=== PATIENT | female | born 1955 | race Caucasian/White ===

== ENCOUNTER 2022-02-15 08:04 | Inpatient (IN) | payer OTHER ==
[~2022-02-15] VITALS: Ht 157.5 cm; Wt 40.0 kg
--- NOTE | 2022-02-15 08:45 | NUR ---
PT'S DAUGHTER REPORTS PT NAUSEA AND VOMITING YESTERDAY RUNNY NOSE WELL. PT'S CLOTHES ALL WET APPARENTLY SWEATING.
--- NOTE | 2022-02-15 09:30 | NUR ---
PT DAUGHTER AT BEDSIDE
[2022-02-15 09:55] LABS: BASOPHILS % (AUTO) 0.1 % (0-1); EOSINOPHILS % (AUTO) 0.1 % (0-6); HEMATOCRIT 40.6 % (35.0-45.0); HEMOGLOBIN 13.9 g/dl (12.0-16.0); LYMPHOCYTES # (AUTO) 1.4 X10'3 (1.1-4.8); LYMPHOCYTES % (AUTO) 8.1 % (21-51); MEAN CORPUSCULAR HEMOGLOBIN 30.5 PG (27.0-31.0); MEAN CORPUSCULAR HGB CONC 34.1 g/dL (33.0-36.5); MEAN CORPUSCULAR VOLUME 89.4 FL (78-98); MEAN PLATELET VOLUME 6.8 FL (7.4-10.4); MONOCYTES # (AUTO) 0.9 X10'3 (0-0.9); MONOCYTES % (AUTO) 5.2 % (2-12); NEUTROPHILS # (AUTO) 15.2 X10'3 (1.8-7.7); NEUTROPHILS % (AUTO) 86.5 % (42-75); PLATELET COUNT 335 X10'3 (140-440); RED BLOOD COUNT 4.55 X10'6 (4.20-5.60); RED CELL DISTRIBUTION WIDTH 12.5 % (11.5-14.5); WHITE BLOOD COUNT 17.6 X10'3 (4.5-11.0)
[2022-02-15] MEDS ORDERED: PROP40TA72 PO (09:58)
[2022-02-15] MEDS ORDERED: CBD GUMMY PO (09:59)
[2022-02-15] MEDS ORDERED: [UNRECOGNIZED DRUG - OTHER] PO (09:59)
[2022-02-15 10:12] LABS: ALANINE AMINOTRANSFERASE 30 U/L (12-78); ALBUMIN/GLOBULIN RATIO 1.2 (1.1-1.5); ALKALINE PHOSPHATASE 94 IU/L (46-116); ANION GAP 14 (8-16); ASPARTATE AMINO TRANSFERASE 57 U/L (10-37); BILIRUBIN,TOTAL 1.5 MG/DL (0.1-1.0); BLOOD UREA NITROGEN 10 MG/DL (7-18); BUN/CREATININE RATIO 15.9 (6.6-38.0); CHLORIDE 77 MMOL/L (99-107); CREATININE 0.63 MG/DL (0.40-0.90); ETHANOL < 0.010 GM/DL (0.0-0.010); GLUCOSE 122 MG/DL (70-104); POTASSIUM 3.9 MMOL/L (3.5-5.1); TOTAL CARBON DIOXIDE 21.4 MMOL/L (24-32); TOTAL PROTEIN 7.3 G/DL (6.4-8.2); eGFR > 90 ML/MIN
[2022-02-15 10:15] LABS: SODIUM 112 MMOL/L (135-145)
[2022-02-15 10:29] LABS: UA COLLECTION TYPE STRAIGHT CATH
[2022-02-15 10:30] LABS: CLARITY,URINE CLEAR (Clear); COLOR,URINE YELLOW (Yellow); GLUCOSE, URINE NEGATIVE (Neg); KETONES,URINE 40 mg/dl (Neg); LEUKOCYTE ESTERASE ,URINE NEGATIVE (Neg); NITRITES, URINE NEGATIVE (Neg); OCCULT BLOOD,URINE MODERATE (Neg); PH,URINE 6.5 (4.8-8.0); PROTEIN,URINE 30 mg/dl (Neg); UROBILINOGEN,URINE 0.2 E.U/dL (0.2-1.0)
[2022-02-15 10:38] LABS: URINE AMPHETAMINE SCREEN NEGATIVE (Neg); URINE BARBITUATE SCREEN NEGATIVE (Neg); URINE BENZODIAZEPINES SCREEN NEGATIVE (Neg); URINE CANNABINOID SCREEN POSITIVE (Neg); URINE COCAINE SCREEN NEGATIVE (Neg); URINE METHADONE SCREEN NEGATIVE (Neg); URINE OPIATE SCREEN NEGATIVE (Neg); URINE PHENCYCLIDINE SCREEN NEGATIVE (Neg)
[2022-02-15 10:40] LABS: BACTERIA,URINE NONE SEEN /HPF (Neg); WBC,URINE 0-4 /HPF (0-4)
[2022-02-15 10:41] LABS: SQUAMOUS EPITHELIAL CELL,UR NONE SEEN /LPF (FEW)
[2022-02-15 10:53] LABS: C-REACTIVE PROTEIN 0.13 MG/DL (0.0-0.5)
[2022-02-15] MEDS ORDERED: iohexol 300mg/ml 100ml inj. ONE (12:55)
[2022-02-15] MEDS ORDERED: PERFLUTREN PROTEIN-A MICROSPHR (Optison) 0.22 MG/ML 3ML VIAL IV ONE (14:35)
[2022-02-15] MEDS ORDERED: HYDROcodone/acetaminophen 10/325mg tab PO PRN (14:35)
[2022-02-15] MEDS ORDERED: ondansetron/PF 4mg/2ml inj IV PRN (14:35)
[2022-02-15] MEDS ORDERED: bisacodyl 10mg suppository rectal RC PRN (14:35)
[2022-02-15] MEDS ORDERED: mag hydrox/Alum hydrox/simeth 30ml oral suspension PO PRN (14:35)
[2022-02-15] MEDS ORDERED: magnesium hydroxide 30ml (MOM) UD suspension PO PRN (14:35)
[2022-02-15] MEDS ORDERED: acetaminophen 325mg tablet PO PRN ×2 (14:35)
[2022-02-15] MEDS ORDERED: HYDROcodone/acetaminophen 5mg/325mg tablet PO PRN (14:35)
[2022-02-15] MEDS ORDERED: magnesium 4gm in 100ml NS 100 ML IV PRN (14:35)
[2022-02-15] MEDS ORDERED: magnesium Cl slow-release 64mg tablet PO PRN (14:35)
[2022-02-15] MEDS ORDERED: diphenhydrAMINE 25mg capsule PO PRN (14:35)
[2022-02-15] MEDS ORDERED: magnesium 2GM in 50ml NS 50 ML IV PRN (14:35)
[2022-02-15] MEDS ORDERED: acetaminophen 650mg rectal suppository RC PRN (14:35)
[2022-02-15] MEDS ORDERED: POTASSIUM BICARB 20meq eff tab 20 MEQ TABLET.EFF PO PRN ×2 (14:35)
[2022-02-15] MEDS ORDERED: potassium CL 10mEq/100ml bag 100 ML IV PRN (14:35)
[2022-02-15] MEDS ORDERED: morphine 2 MG/ML inj. syringe IV PRN ×2 (14:35)
[2022-02-15] MEDS: normal saline 1000ml 1,000 ML IV SCH (15:02)
[2022-02-15 15:45] LABS: CHOL/HDL RATIO 4.7 (0.00-4.99); CHOLESTEROL 354 MG/DL (0-200); HDL CHOLESTEROL 76 MG/DL (35-60); LDL CHOLESTEROL 244 MG/DL (50-100); TRIGLYCERIDES 88 MG/DL (20-135)
[2022-02-15 15:46] LABS: HEMOGLOBIN A1C 5.7 % (4.5-6.2)
--- NOTE | 2022-02-15 15:49 | NUR ---
REPORT GIVEN TO RN JORDAN, PT TO GO TO ROOM 2694I
[2022-02-15 16:42] VITALS: BP 129/87
[2022-02-15 16:55] LABS: ALANINE AMINOTRANSFERASE 23 U/L (12-78); ALBUMIN 3.7 G/DL (3.4-5.0); ALBUMIN/GLOBULIN RATIO 1.2 (1.1-1.5); ALKALINE PHOSPHATASE 85 IU/L (46-116); ANION GAP 14 (8-16); ASPARTATE AMINO TRANSFERASE 49 U/L (10-37); BILIRUBIN,TOTAL 1.4 MG/DL (0.1-1.0); BLOOD UREA NITROGEN 8 MG/DL (7-18); BUN/CREATININE RATIO 12.7 (6.6-38.0); CALCIUM 8.4 MG/DL (8.5-10.1); CHLORIDE 80 MMOL/L (99-107); CREATININE 0.63 MG/DL (0.40-0.90); GLUCOSE 94 MG/DL (70-104); POTASSIUM 3.3 MMOL/L (3.5-5.1); TOTAL CARBON DIOXIDE 21.7 MMOL/L (24-32); TOTAL PROTEIN 6.7 G/DL (6.4-8.2); eGFR > 90 ML/MIN
[2022-02-15 16:58] LABS: SODIUM 116 MMOL/L (135-145)
[2022-02-15 18:00] VITALS: BP 131/55
[2022-02-15] MEDS: docusate sod 100mg capsule PO SCH (20:00)
[2022-02-15] MEDS: K and/or MAG REPLACEMENT MC SCH (20:00)
[2022-02-15] MEDS: heparin, porcine 5000 units/ml vial SQ SCH (20:04)
[2022-02-15 22:00] VITALS: BP 107/52
[2022-02-16 02:00] VITALS: BP 102/82
[2022-02-16] MEDS: normal saline 1000ml 1,000 ML IV SCH ×2 (03:49→10:35)
[2022-02-16 03:52] LABS: ALANINE AMINOTRANSFERASE 31 U/L (12-78); ALBUMIN 3.4 G/DL (3.4-5.0); ALBUMIN/GLOBULIN RATIO 1.3 (1.1-1.5); ALKALINE PHOSPHATASE 74 IU/L (46-116); ANION GAP 10 (8-16); ASPARTATE AMINO TRANSFERASE 47 U/L (10-37); BILIRUBIN,TOTAL 1.2 MG/DL (0.1-1.0); BLOOD UREA NITROGEN 7 MG/DL (7-18); BUN/CREATININE RATIO 9.9 (6.6-38.0); CALCIUM 8.2 MG/DL (8.5-10.1); CHLORIDE 88 MMOL/L (99-107); CHOL/HDL RATIO 4.7 (0.00-4.99); CHOLESTEROL 286 MG/DL (0-200); CREATININE 0.71 MG/DL (0.40-0.90); GLUCOSE 93 MG/DL (70-104); HDL CHOLESTEROL 61 MG/DL (35-60); LDL CHOLESTEROL 190 MG/DL (50-100); MAGNESIUM 1.9 MG/DL (1.5-2.4); PHOSPHORUS 2.2 MG/DL (2.3-4.5); POTASSIUM 3.5 MMOL/L (3.5-5.1); SODIUM 122 MMOL/L (135-145); TOTAL PROTEIN 6.1 G/DL (6.4-8.2); TRIGLYCERIDES 87 MG/DL (20-135); eGFR 82 ML/MIN
[2022-02-16 03:55] LABS: BASOPHILS % (AUTO) 0.3 % (0-1); EOSINOPHILS % (AUTO) 0.1 % (0-6); HEMOGLOBIN 11.7 g/dl (12.0-16.0); LYMPHOCYTES # (AUTO) 1.9 X10'3 (1.1-4.8); LYMPHOCYTES % (AUTO) 13.3 % (21-51); MEAN CORPUSCULAR HEMOGLOBIN 30.5 PG (27.0-31.0); MEAN CORPUSCULAR HGB CONC 34.4 g/dL (33.0-36.5); MEAN CORPUSCULAR VOLUME 88.6 FL (78-98); MEAN PLATELET VOLUME 7.4 FL (7.4-10.4); MONOCYTES # (AUTO) 1.1 X10'3 (0-0.9); MONOCYTES % (AUTO) 7.9 % (2-12); NEUTROPHILS % (AUTO) 78.4 % (42-75); PLATELET COUNT 324 X10'3 (140-440); RED BLOOD COUNT 3.84 X10'6 (4.20-5.60); RED CELL DISTRIBUTION WIDTH 12.6 % (11.5-14.5)
[2022-02-16 06:00] VITALS: BP 103/38
[2022-02-16] MEDS ORDERED: aspirin 325mg tablet, delayed-release (Ecotrin) PO SCH (08:00)
[2022-02-16] MEDS: K and/or MAG REPLACEMENT MC SCH ×2 (08:00→20:00)
[2022-02-16] MEDS ORDERED: atorvastatin 10mg tablet PO SCH (08:00)
--- NOTE | 2022-02-16 09:01 | NUR ---
CBD Gummy is 2mg CBD : 5mg THC Family reports that she takes them at will and does not recall how often or how many.
[2022-02-16] MEDS: docusate sod 100mg capsule PO SCH ×2 (09:04→21:03)
[2022-02-16] MEDS: heparin, porcine 5000 units/ml vial SQ SCH (09:05)
--- NOTE | 2022-02-16 10:16 | NUR ---
Malnutrition consult: Pt reports wt loss with decreased appetite per malnutrition risk screen with RN. Unable to obtain information from pt at this time as pt A/O x 2 and confused. Per EMR pt with scaled wt h/o 40 kg taken 11/04/16 which is most recent scaled wt in EMR. Current wt is 40 kg though no documentation of how current wt was obtained. Pt possibly chronically underweight. ST has been consulted for BSS to determine most appropriate texture modification however in the mean time pt on a pureed diet, documented with 25% PO intake of protein only on first meal. AMS likely impacting PO intake. Recommend assisting with meals. Pt with no documented edema or decrease in muscle strength, with 5/5 photolithographer strength per ED report. Pt currently lacks a minimum of two criteria for malnutrition. Will continue to follow and further monitor malnutrition criteria. Addendum: 02/16/22 at [address] Amended: Links added.
[2022-02-16 11:00] VITALS: BP 134/43
[2022-02-16 12:40] LABS: HEMATOCRIT 33.7 % (35.0-45.0); HEMOGLOBIN 11.7 g/dl (12.0-16.0); MEAN CORPUSCULAR HEMOGLOBIN 31.5 PG (27.0-31.0); MEAN CORPUSCULAR HGB CONC 34.7 g/dL (33.0-36.5); MEAN CORPUSCULAR VOLUME 90.7 FL (78-98); MEAN PLATELET VOLUME 6.8 FL (7.4-10.4); PLATELET COUNT 332 X10'3 (140-440); RED BLOOD COUNT 3.71 X10'6 (4.20-5.60); RED CELL DISTRIBUTION WIDTH 12.7 % (11.5-14.5); WHITE BLOOD COUNT 12.5 X10'3 (4.5-11.0)
[2022-02-16] MEDS ORDERED: propranolol 10mg tablet PO ONE (14:15)
[2022-02-16 15:00] VITALS: BP 141/55
[2022-02-16 18:00] VITALS: BP 145/65
[2022-02-16] MEDS ORDERED: propranolol 10mg tablet PO SCH (21:00)
[2022-02-16] MEDS: propranolol 10mg tablet PO SCH (21:04)
[2022-02-16] MEDS: pantoprazole 40MG/NS 100ML BAG 100 ML IV SCH (21:05)
[2022-02-16] MEDS: atorvastatin 20mg tablet PO SCH (21:05)
[2022-02-16 22:00] VITALS: BP 149/65
[2022-02-17] VITALS (7 sets, daily range): BP systolic 117–155; BP diastolic 43–80
[2022-02-17] MEDS: normal saline 1000ml 1,000 ML IV SCH ×3 (01:02→16:35)
[2022-02-17 06:59] LABS: BASOPHILS # (AUTO) 0.1 X10'3 (0-0.2); BASOPHILS % (AUTO) 0.6 % (0-1); EOSINOPHILS % (AUTO) 0.2 % (0-6); HEMATOCRIT 31.6 % (35.0-45.0); HEMOGLOBIN 10.9 g/dl (12.0-16.0); LYMPHOCYTES # (AUTO) 1.7 X10'3 (1.1-4.8); LYMPHOCYTES % (AUTO) 20.1 % (21-51); MEAN CORPUSCULAR HEMOGLOBIN 31.4 PG (27.0-31.0); MEAN CORPUSCULAR HGB CONC 34.6 g/dL (33.0-36.5); MEAN CORPUSCULAR VOLUME 90.9 FL (78-98); MEAN PLATELET VOLUME 7.8 FL (7.4-10.4); MONOCYTES # (AUTO) 0.8 X10'3 (0-0.9); MONOCYTES % (AUTO) 9.3 % (2-12); NEUTROPHILS % (AUTO) 69.8 % (42-75); PLATELET COUNT 303 X10'3 (140-440); RED BLOOD COUNT 3.48 X10'6 (4.20-5.60); RED CELL DISTRIBUTION WIDTH 12.9 % (11.5-14.5); WHITE BLOOD COUNT 8.6 X10'3 (4.5-11.0)
[2022-02-17 07:29] LABS: ALANINE AMINOTRANSFERASE 36 U/L (12-78); ALBUMIN/GLOBULIN RATIO 1.2 (1.1-1.5); ALKALINE PHOSPHATASE 62 IU/L (46-116); ANION GAP 11 (8-16); ASPARTATE AMINO TRANSFERASE 46 U/L (10-37); BILIRUBIN,TOTAL 0.8 MG/DL (0.1-1.0); BLOOD UREA NITROGEN 6 MG/DL (7-18); BUN/CREATININE RATIO 10.2 (6.6-38.0); CALCIUM 8.2 MG/DL (8.5-10.1); CHLORIDE 99 MMOL/L (99-107); CREATININE 0.59 MG/DL (0.40-0.90); GLUCOSE 90 MG/DL (70-104); MAGNESIUM 1.9 MG/DL (1.5-2.4); PHOSPHORUS 1.6 MG/DL (2.3-4.5); POTASSIUM 3.8 MMOL/L (3.5-5.1); SODIUM 134 MMOL/L (135-145); TOTAL CARBON DIOXIDE 24.1 MMOL/L (24-32); TOTAL PROTEIN 5.6 G/DL (6.4-8.2); eGFR > 90 ML/MIN
[2022-02-17] MEDS: docusate sod 100mg capsule PO SCH ×2 (08:00→20:13)
[2022-02-17] MEDS: K and/or MAG REPLACEMENT MC SCH ×2 (08:00→20:00)
[2022-02-17] MEDS: atorvastatin 20mg tablet PO SCH (08:00)
[2022-02-17] MEDS: propranolol 10mg tablet PO SCH ×3 (08:03→20:12)
[2022-02-17] MEDS ORDERED: MIDAZolam 1 MG/ML 5ML VIAL ONE (08:22)
[2022-02-17] MEDS ORDERED: fentaNYL/PF 50MCG/1 ML 2ML syringe ONE (08:22)
[2022-02-17] MEDS ORDERED: LIDOcaine Viscous 15ml cup ONE (08:22)
[2022-02-17] MEDS: pantoprazole 40MG/NS 100ML BAG 100 ML IV SCH (12:35)
[2022-02-17] MEDS ORDERED: sodium phosphate inj. 30 MMOL in dextrose 5%-water 250 ML IV ONE (17:35)
--- NOTE | 2022-02-17 18:42 | NUR ---
Patient in room PCU 3024A. I have received report from DANIE Schmidt and had the opportunity to ask questions and assume patient care.
--- NOTE | 2022-02-17 19:35 | NUR ---
James Laguna [phone]
[2022-02-17] MEDS: pantoprazole 40mg Tablet.DR PO SCH (20:13)
[2022-02-17] MEDS: heparin, porcine 5000 units/ml vial SQ SCH (20:13)
[2022-02-18 02:00] VITALS: BP 145/74
[2022-02-18] MEDS: normal saline 1000ml 1,000 ML IV SCH ×2 (02:35→12:35)
[2022-02-18 06:00] VITALS: BP 142/51
--- NOTE | 2022-02-18 06:36 | NUR ---
Problems reprioritized. Patient report given, questions answered & plan of care reviewed with DANIE Yo.
[2022-02-18 06:59] LABS: BASOPHILS % (AUTO) 0.3 % (0-1); EOSINOPHILS # (AUTO) 0.1 X10'3 (0-0.9); EOSINOPHILS % (AUTO) 0.7 % (0-6); HEMATOCRIT 28.8 % (35.0-45.0); HEMOGLOBIN 9.9 g/dl (12.0-16.0); LYMPHOCYTES % (AUTO) 26.6 % (21-51); MEAN CORPUSCULAR HEMOGLOBIN 31.5 PG (27.0-31.0); MEAN CORPUSCULAR HGB CONC 34.5 g/dL (33.0-36.5); MEAN CORPUSCULAR VOLUME 91.3 FL (78-98); MEAN PLATELET VOLUME 7.1 FL (7.4-10.4); MONOCYTES # (AUTO) 0.6 X10'3 (0-0.9); MONOCYTES % (AUTO) 8.1 % (2-12); NEUTROPHILS # (AUTO) 4.9 X10'3 (1.8-7.7); NEUTROPHILS % (AUTO) 64.3 % (42-75); PLATELET COUNT 268 X10'3 (140-440); RED BLOOD COUNT 3.15 X10'6 (4.20-5.60); RED CELL DISTRIBUTION WIDTH 12.9 % (11.5-14.5); WHITE BLOOD COUNT 7.7 X10'3 (4.5-11.0)
[2022-02-18 07:53] LABS: ALANINE AMINOTRANSFERASE 37 U/L (12-78); ALBUMIN/GLOBULIN RATIO 1.2 (1.1-1.5); ALKALINE PHOSPHATASE 61 IU/L (46-116); ANION GAP 13 (8-16); ASPARTATE AMINO TRANSFERASE 33 U/L (10-37); BILIRUBIN,TOTAL 0.7 MG/DL (0.1-1.0); BLOOD UREA NITROGEN 7 MG/DL (7-18); BUN/CREATININE RATIO 12.3 (6.6-38.0); CALCIUM 7.9 MG/DL (8.5-10.1); CHLORIDE 102 MMOL/L (99-107); CREATININE 0.57 MG/DL (0.40-0.90); GLUCOSE 96 MG/DL (70-104); MAGNESIUM 1.8 MG/DL (1.5-2.4); PHOSPHORUS 4.1 MG/DL (2.3-4.5); POTASSIUM 3.5 MMOL/L (3.5-5.1); SODIUM 140 MMOL/L (135-145); TOTAL CARBON DIOXIDE 24.9 MMOL/L (24-32); TOTAL PROTEIN 5.6 G/DL (6.4-8.2); eGFR > 90 ML/MIN
[2022-02-18] MEDS: K and/or MAG REPLACEMENT MC SCH (08:00)
[2022-02-18] MEDS: docusate sod 100mg capsule PO SCH (08:15)
[2022-02-18] MEDS: pantoprazole 40mg Tablet.DR PO SCH (08:15)
[2022-02-18] MEDS: atorvastatin 20mg tablet PO SCH (08:15)
[2022-02-18] MEDS: heparin, porcine 5000 units/ml vial SQ SCH (08:15)
[2022-02-18] MEDS: propranolol 10mg tablet PO SCH ×2 (08:26→14:53)
[2022-02-18] MEDS ORDERED: aspirin 81mg tab.chew PO SCH (08:30)
[2022-02-18 11:00] VITALS: BP 145/45
[2022-02-18] MEDS ORDERED: ASPI81TA53 PO (13:36)
[2022-02-18] MEDS ORDERED: ATOR20TA66 PO (13:36)
[2022-02-18] MEDS ORDERED: PANT40TA54 PO (13:36)
[2022-02-18] MEDS ORDERED: CARV-49 PO (13:38)
[2022-02-18 15:00] VITALS: BP 149/61
[2022-02-19 12:12] LABS: AFP,SERUM, TUMOR MARKER 2.7 ng/mL (0.0-9.2); CANCER ANTIGEN 125 9.3 U/mL (0.0-38.1)
== END 2022-02-18 17:15 | disposition home or self-care (01) | DRG 91 ==
LOC: ER 08:04 → ED HOLD 14:40 → EDBEDREQ 15:29 → PCU 3S 16:11
PROVIDERS: ADMIT Family Medicine; ATTEND Family Medicine
PROC: 0DB68ZZ Excision of Stomach, Via Natural or Artificial Opening Endoscopic (ICD-10-PCS; principal; 2022-02-17)
DX: G92.8 Other toxic encephalopathy (principal); E43 Unspecified severe protein-calorie malnutrition; E87.1 Hypo-osmolality and hyponatremia; Z68.1 Body mass index [BMI] 19.9 or less, adult; K20.90 Esophagitis, unspecified without bleeding; E04.1 Nontoxic single thyroid nodule; E78.5 Hyperlipidemia, unspecified; Z20.822 Contact with and (suspected) exposure to COVID-19; K31.7 Polyp of stomach and duodenum; E86.0 Dehydration; E83.39 Other disorders of phosphorus metabolism; E87.6 Hypokalemia; F15.90 Other stimulant use, unspecified, uncomplicated; F32.A Depression, unspecified; F17.200 Nicotine dependence, unspecified, uncomplicated; F41.9 Anxiety disorder, unspecified; K29.00 Acute gastritis without bleeding; Z79.899 Other long term (current) drug therapy; Z90.49 Acquired absence of other specified parts of digestive tract; Z88.2 Allergy status to sulfonamides; Z71.51 Drug abuse counseling and surveillance of drug abuser; Z71.6 Tobacco abuse counseling
CPT/HCPCS: 36415; 43239; 43251; 70450; 70544; 70551; 71045; 71260; 74177; 76536; 80053; 80061; 80305; 80320; 81001; 82103; 82378; 83036; 83605; 83735; 84100; 84145; 84439; 84443; 85025; 85027; 85651; 86140; 86301; 86304; 87040; 87081; 87635; 92508; 92616; 93306; 93880; 97116; 97161; 97530; 99152; 99285; A4353; A4620; A6258; C1773; C9113; C9803; G0378; J1644; J2250; J2405; J3010; J3490; J7030; J7060; Q9967